=== PATIENT | male | born 1995 | race Caucasian/White ===

== ENCOUNTER → 2018-08-16 | Outpatient (CLI) | payer BC ==
--- NOTE | 2018-08-16 17:20 | RADIOLOGY IMAGING REPORT ---
FACILITY: [facility] PATIENT NAME: Sam Piedra : 1995 MR: [id number] V: [id number] EXAM DATE: ORDERING PHYSICIAN: BAILEY GOODWIN TECHNOLOGIST: Location: [facility] [place] Patient: Sam Piedra : 1995 Visit/Account:[id number] Date of Sevice: 08/16/2018 Exam type: L-SPINE >4 VIEWS History: Low back pain, snowboarding accident two days ago Comparison: None. Findings: There are five nonrib-bearing lumbar-type vertebral bodies present. There is no evidence of acute fr actures or subluxations. The disc spaces appear well-preserved. IMPRESSION: 1. Unremarkable lumbar spine series. If patient's symptoms persist MR may be helpful for further ev aluation Report Dictated By: Nuvia Pérez MD at 08/16/2018 5:15 PM Report E-Signed By: Nuvia Pérez MD at 08/16/2018 5:16 PM WSN:[id number]
== END ==
LOC: RAD 16:24
PROVIDERS: ATTEND Chiropractor
DX: M54.5 Low back pain (principal)
CPT/HCPCS: 72120